=== PATIENT | male | born 1945 | race African-American/Black ===

== ENCOUNTER → 2017-03-02 | Day surgery (SDC) | payer OTHER ==
--- NOTE | 2017-02-27 17:08 | Pre-op HX & Phy Repo 2 SIG ---
DATE OF ADMISSION: 03/02/2017 DATE OF SURGERY: 03/02/2017. PREOPERATIVE DIAGNOSIS: Total retinal detachment, left eye. BRIEF NOTE: This is the first [place] admission for the patient, who is a very nice 72-year-old gentleman, who complained of decreased vision in the left eye and was found to have a total retinal detachment. He underwent cataract surgery roughly one month ago and noticed no real improvement in his vision. PAST OCULAR HISTORY: Negative for prior surgery other than the cataract. PAST MEDICAL HISTORY: Remarkable for previous throat condition. ALLERGIES: He has no known allergies. PHYSICAL EXAMINATION: Best vision at the time of admission was 20/25 in the right eye and hand motions in the left. Pressures were 12 and 2. The anterior segment on the right showed simply sluggish reaction and the left showed mild hyperemia. There was an anterior chamber lens in reasonable position. Mild flare was seen in the anterior chamber. Fundus exam of the right eye appeared benign. The left eye showed a total retinal detachment that was freely mobile. A horseshoe tear was seen at the 2 o'clock position. A possible second tear was suspected, but was not clearly seen because of a fold. The detachment was confirmed on ultrasound. General physical examination will be included with this dictation and performed by , the patient's general physician. ASSESSMENT: 1. Total retinal detachment, left eye. 2. Pseudophakia. PLAN: The plan is to perform a pars plana vitrectomy with possible scleral buckle, endolaser, gas fluid exchange, or possible silicone oil on the left eye. The risks and benefits of surgery were gone over the patient with potential for infection, hemorrhage, glaucoma, and remote possibility of loss of the eye. The risk of anesthesia was discussed. The patient understands and consents to the surgery, which will be performed on Thursday. Isra Gómez M.D. DR: DENNYS JOB#: [id number] CC:
[2017-03-02] VITALS (8 sets, daily range): BP systolic 109–132; BP diastolic 58–80
[~2017-03-02] VITALS: Ht 177.8 cm; Wt 75.7 kg
[~2017-03-02] MED LIST: BSS 15ml BTL ONE; BSS 500ml btl ONE; Bupivacaine 0.75% 30ml vial INJ ONE; Cyclopentolate 1% Opth Sol ONE; Dexamethasone 4mg/ml vial ONE; EPINEPHrine 1mg/1ml Amp ONE; Flurbiprofen 0.03% Opth Sol 2.5ml ONE; Gatifloxacin Opth Solution 0.5% ONE; Hydromorphone 0.5mg/0.5ml inj IVP PRN; Kenalog-10 5ml Inj ONE; Kenalog-40 1ml Vial ONE; Ketorolac 30mg Inj IV PRN; LORATADINE10 M2 PO; Lidocaine 2% MPF 5ml Vial INJ ONE; Maxitrol Opth Oint 3.5gm ONE; NS Irrig 1000ml ONE; Neosporin Oph Soln 5ml Btl ONE; Norco 5mg/325mg tab ORAL PRN; Phenylephrine 2.5% Op Soln ONE; Povidone-Iodine 5% opth solution ONE; Pred Forte 1% Opth Susp 1ml LEFT EYE SCH; Sodium Hyaluronate 10 mg/ml 0.85ml ONE; Sterile Water Irrig 1000ml IRRIG ONE; Tetracaine 0.5% Opth Soln ONE; fentaNYL 100 mcg/2 mL IV PRN
--- NOTE | 2017-03-02 06:27 | Pre-Procedure Note/Attestation ---
Pre-Procedure Note/Attestation Complete Prior to Procedure Planned Procedure: left Procedure Narrative: PPV, possible scleral buckle, endolaser, possible gas-fluid exchange, possible silicone oil injection L eye Indications for Procedure Pre-Operative Diagnosis: Total retinal detachment L eye Attestation I attest that I discussed the nature of the procedure; its benefits; risks and complications; and alternatives (and the risks and benefits of such alternatives ), prior to the procedure, with the patient (or the patient's legal sales representative girls' apparel). I attest that, if there was a reasonable possibility of needing a blood transfusion, the patient (or the patient's legal sales representative girls' apparel) was given the [place] Department of Health Services standardized written summary, pursuant to the Aiden Tara Blood Safety Act ([place] Health and Safety Code # 1645, as amended). I attest that I re-evaluated the patient just prior to the surgery and that there has been no change in the patient's H&P, except as documented below: ELIZABETH MURPHY Mar 02, 2017 06:27
[2017-03-02] MEDS: Flurbiprofen 0.03% Opth Sol 2.5ml LEFT EYE SCH ×3 (07:49→08:04)
[2017-03-02] MEDS: Phenylephrine 2.5% Op Soln LEFT EYE SCH ×3 (07:49→08:04)
[2017-03-02] MEDS: Gatifloxacin Opth Solution 0.5% LEFT EYE SCH ×3 (07:50→08:04)
[2017-03-02] MEDS: Cyclopentolate 1% Opth Sol LEFT EYE SCH ×3 (07:50→08:04)
[2017-03-02 08:09] LABS: BASOPHILS % (AUTO) 1.3 % (0.0-2.0); EOSINOPHILS % (AUTO) 0.5 % (0.0-3.0); LYMPHOCYTES % (AUTO) 25.4 % (20.0-45.0); MEAN CORPUSCULAR HEMOGLOBIN 28.4 PG (27.0-31.0); MEAN CORPUSCULAR HGB CONC 30.8 G/DL (32.0-36.0); MEAN CORPUSCULAR VOLUME 92 FL (80-99); MEAN PLATELET VOLUME 8.2 FL (6.5-10.1); MONOCYTES % (AUTO) 7.4 % (1.0-10.0); NEUTROPHILS % (AUTO) 65.4 % (45.0-75.0); PLATELET COUNT 237 K/UL (150-450); RED BLOOD COUNT 5.33 M/UL (4.70-6.10); RED CELL DISTRIBUTION WIDTH 12.9 % (11.6-14.8); WHITE BLOOD COUNT 8.4 K/UL (4.8-10.8)
[2017-03-02 08:39] LABS: ANION GAP 15 (5-15); CALCIUM 9.1 mg/dL (8.6-10.2); CARBON DIOXIDE 26 mEQ/L (20-30); CHLORIDE 100 mEQ/L (98-107); GLOMERULAR FILTRATION RATE > 60 mL/min (>60); HEMOLYSIS 181; POTASSIUM 5.6 mEQ/L (3.4-4.9); SODIUM 141 mEQ/L (135-145)
--- NOTE | 2017-03-02 12:01 | Anethesia Preoperative Eval ---
Anesthesia Pre-op PMH/ROS General Date of Evaluation: Mar 02, 2017 Time of Evaluation: 10:20 Anesthesiologist: Jaskaran ASA Score: ASA 2 Mallampati Score Class I : Soft palate, uvula, fauces, pillars visible Class II: Soft palate, uvula, fauces visible Class III: Soft palate, base of uvula visible Class IV: Only hard plate visible Mallampati Classification: Class II Surgeon: Dalia Diagnosis: Retinal Detatchment Surgical Procedure: Vitrectomy Anesthesia History: none Family History: no anesthesia problems Allergies: Coded Allergies: No Known Allergies (Unverified , 02/27/17) Medications: see eMAR Past Medical History Cardiovascular: Denies: CAD, HTN, [place], arrhythmia, other, valve dz Pulmonary: Denies: COPD, NERI, asthma, other Gastrointestinal/Genitourinary: Denies: CRI, ESRD, GERD, other Neurologic/Psychiatric: Denies: CVA, TIA, dementia, depression/anxiety, other Endocrine: Denies: DM, hypothyroidism, other, steroids HEENT: Denies: [place] (L), SHO[place]WATER (R), cataract (L), cataract (R), glaucoma, other Hematology/Immune: Denies: DVT, anemia, bleeding disorder, other Musculoskeletal/Integumentary: Reports: DJD Anesthesia Pre-op Phys. Exam Physician Exam Last Vital Signs Date Time Temp Pulse Resp B/P Pulse Ox O2 Delivery O2 Flow Rate FiO2 03/02/17 07:56 97.8 72 18 123/73 100 Room Air Constitutional: NAD Neurologic: CN 2-12 intact Cardiovascular: RRR Respiratory: CTA Gastrointestinal: S/NT/ND Airway Exam Mallampati Score: Class II Anesthesia Pre-op A/P Labs Hematology Test 03/02/17 07:40 White Blood Count 8.4 K/UL (4.8-10.8) Red Blood Count 5.33 M/UL (4.70-6.10) Hemoglobin 15.2 G/DL (14.2-18.0) Hematocrit 49.2 % (42.0-52.0) Mean Corpuscular Volume 92 FL (80-99) Mean Corpuscular Hemoglobin 28.4 PG (27.0-31.0) Mean Corpuscular Hemoglobin Concent 30.8 G/DL (32.0-36.0) L Red Cell Distribution Width 12.9 % (11.6-14.8) Platelet Count 237 K/UL (150-450) Mean Platelet Volume 8.2 FL (6.5-10.1) Neutrophils (%) (Auto) 65.4 % (45.0-75.0) Lymphocytes (%) (Auto) 25.4 % (20.0-45.0) Monocytes (%) (Auto) 7.4 % (1.0-10.0) Eosinophils (%) (Auto) 0.5 % (0.0-3.0) Basophils (%) (Auto) 1.3 % (0.0-2.0) Chemistry Test 03/02/17 07:40 Sodium Level 141 mEQ/L (135-145) Potassium Level 5.6 mEQ/L (3.4-4.9) H Chloride Level 100 mEQ/L (98-107) Carbon Dioxide Level 26 mEQ/L (20-30) Anion Gap 15 (5-15) Blood Urea Nitrogen 15 mg/dL (7-23) Creatinine 1.0 mg/dL (0.7-1.2) Estimat Glomerular Filtration Rate > 60 mL/min (>60) Glucose Level 99 mg/dL (74-106) Calcium Level 9.1 mg/dL (8.6-10.2) EDOUARD MURGUIA M.D. Mar 02, 2017 12:01
--- NOTE | 2017-03-02 13:15 | Immediate Post-Op Evaluation ---
Immediate Post-Op Evalulation Immediate Post-Op Evalulation Procedure: Vitrectomy Date of Evaluation: Mar 02, 2017 Time of Evaluation: 13:14 IV Fluids: 400 Blood Products: 0 Estimated Blood Loss: 0 Urinary Output: 0 Blood Pressure Systolic: 130 Blood Pressure Diastolic: 80 Pulse Rate: 80 Respiratory Rate: 20 O2 Sat by Pulse Oximetry: 99 Temperature (Fahrenheit): 98 Pain Score (1-10): 2 Nausea: No Vomiting: No Complications none Patient Status: awake Hydration Status: adequate Given Within 1 Hr of Incision: EDOUARD Bazan M.D. Mar 02, 2017 13:15
--- NOTE | 2017-03-02 13:16 | 48 Hour Post Anesthesia Eval ---
Post Anesthesia Evaluation Procedure: Vitrectomy Date of Evaluation: Mar 02, 2017 Time of Evaluation: 14:00 Blood Pressure Systolic: 130 0: 80 Pulse Rate: 80 Respiratory Rate: 20 Temperature (Fahrenheit): 98 O2 Sat by Pulse Oximetry: 99 Airway: patent Nausea: No Vomiting: No Pain Intensity: 2 Hydration Status: adequate Cardiopulmonary Status: stable Mental Status/LOC: patient returned to baseline Follow-up Care/Observations: na Post-Anesthesia Complications: na Follow-up care needed: N/A EDOUARD MURGUIA M.D. Mar 02, 2017 13:16
--- NOTE | 2017-03-03 22:07 | Operative Note - Dictated ---
DATE OF OPERATION: 03/04/2017 PREOPERATIVE DIAGNOSIS: Total retinal detachment, left eye. POSTOPERATIVE DIAGNOSES: Total retinal detachment, left eye with mild choroidal effusions. PROCEDURES PERFORMED: 1. Pars plana vitrectomy. 2. Scleral buckle. 3. Drainage of choroidal fluid. 4. Endolaser. 5. Formation of peripheral iridotomy. 6. Injection and removal of perfluorocarbon liquid. 7. Silicone oil injection left eye. SURGEON: Isra Gómez M.D. DOUGH CATCHER: None. ANESTHESIA: LMA general. ANESTHESIOLOGIST: Jeremias Jessica M.D. JUSTIFICATION FOR SURGERY: This 72-year-old gentleman noted loss of vision in the right eye roughly a month ago. He underwent cataract surgery soon after that and subsequently was told he had a retinal detachment. BRIEF NOTE: The patient was brought to the operating room, placed on operating room table in supine position. After a time-out was performed and agreed upon by the staff, LMA general anesthesia was induced by Dr. Jessica. Retrobulbar and Van Lint blocks were then given in the standard way to limit the need for intraoperative and postoperative anesthetic. The patient was then prepped and draped in the normal manner. The lid speculum was inserted into the left eye. A 360-degree peritomy was then cut with relaxation incisions at 3 and 9 o'clock in preparation for a subsequent scleral buckle. The muscles were isolated on white and black ties. The eye was examined with indirect ophthalmoscope and the total bullous retinal detachment was seen with migration of the retina to the lens implant and pupillary plane. There were also suspicion of choroidal effusions. Using a 23-gauge trocar system cannulas were placed in all except the infranasal quadrant. Infusion was secured inferotemporally after it was certain that the infusion penetrated the pars plana and entered the anterior segment of the eye. An initial limited vitrectomy was performed but it was noted that there was difficulty in manipulating the retina further posteriorly. For this reason, perfluorocarbon liquid injected into the eye. This helped somewhat but there was still a fairly significant dislocation of the retina anteriorly. A small sclerotomy was made 4 mm in the limbus at about the 11 o'clock position and a large amount of serous fluid was removed. This allowed the retina and choroid to fall back and allowed the infusion to go definitely into the vitreous cavity. Small amount of bleeding was noted and this seized without difficulty. Additional Perfluoron was injected and this allowed the retina to be flattened fairly nicely. At this juncture, the instruments were removed and it was elected to place an encircling scleral buckle. A 240 band was chosen and mattress sutures of 5-0 nylon were placed in each quadrant roughly 3 mm apart, 11 mm from the limbus. A 240 band was placed around the eye and secured with a 7-0 sleeve in the superonasal quadrant. This was tightened to form moderate buckling effect. The eye was re-entered and an air-fluid exchange performed removing Perfluoron . Small amount of migration of posterior fluid was noted but for the most part the retina could be seen flat on the buckle. Endolaser was brought into the eye and a power of 0.3 joy, duration 0.2 seconds, a total of 1647 lesions were applied essentially creating a new pars plana on the crest of the buckle. A small retinal break that had been noted previously at the 2 o'clock position was surrounded by laser in addition two other suspicious areas one at 3 and the other at 8 were also treated. No posterior retinotomy was made and the retina was noted to remain flat. Because of the multiplicity of lesions and the tendency for the retina to migrate it was elected to place silicone oil. The vitreous cutter was used to perform a peripheral iridotomy at 6 o'clock and another smaller one at 3. A 1000 centistokes silicone oil was then chosen and a 85% fill was made leaving an air bubble in the anterior chamber and the eye with normal pressure. At this juncture, the cannulas were removed and the individual sclerotomy closed with 8-0 Vicryl suture. A single 10-0 nylon suture was used to close and opening in the superior cataract wound that had been made with a MVR blade in order to allow pressure to normalize, a knot at this site was buried. Bridle sutures were removed from the muscles and conjunctiva and tenons capsule were pulled up and secured with 6-0 plain catgut. Subconjunctival Decadron and gentamicin were injected and Maxitrol and atropine ointments were instilled. The eye was patched and shielded and the patient taken to recovery in excellent condition after smooth extubation for removal of the LMA. There were no complications but it should be noted that because of the difficulty of repositioning the retina posteriorly a sclerotomy with serous fluid drainage was made and also election was made to go with silicone oil as opposed the gas for tamponade. Isra Gómez M.D. DR: Martha JOB#: [id number] CC: Isra Gómez M.D.; Fax#: [phone]
--- NOTE | 2017-03-04 06:32 | Brief Operative Note ---
Immediate Post Operative Note Operative Note Chief Complaint: Dark vision L eye Pre-op Diagnosis: Total retinal detachment L eye Procedure: PPV, Drainage of choroidal fluid, peflurocarbon injection and removal, inferior iridotomy formation, scleral buckle (240 band), endolaser, silicone oil injection (1000 cs) Left eye Post-op Diagnosis: Total retinal detachment with serous choroidal effusions L eye Findings: consistent w/pre-op dx studies Surgeon: Dalia Anesthesiologist: Jaskarna Anesthesia: general Specimen: none Complications: none Condition: stable Estimated Blood Loss: none Drains: none Implant(s) used?: Yes - Silicone oil injection ELIZABETH MURPHY Mar 04, 2017 06:32
--- NOTE | 2017-03-04 11:38 | Pre-op HX & Phy Repo 2 SIG ---
DATE OF ADMISSION: 03/02/2017 PRESURGICAL INTERNAL MEDICINE HISTORY AND PHYSICAL REASON FOR EVALUATION: I was asked by Dr. Isra Gómez to see this 72-year-old male, who going for elective surgery on the left eye. The patient has total retinal detachment, left eye. Please see History and Physical by Dr. Isra Gómez. The patient was evaluated. Chart was reviewed. PAST MEDICAL HISTORY/REVIEW OF SYSTEMS: Remarkable for denies history of heart attack. No hypertension. Denies history of stroke or diabetes. No history of GI problem, heartburn or ulcer disease. No history of anemia. No respiratory problem. No renal deficiency. Denies history of hepatitis. No thyroid problem. PAST SURGICAL HISTORY: Inguinal hernia at age 18, left elbow and left knee surgery. MEDICATIONS: Present medications loratadine, vitamins Tylenol p.r.n., and [place] p.r.n. for pain. ALLERGIES: Not known. HABITS: Denies tobacco. Alcohol socially. No street drugs. FAMILY HISTORY: Mother from lung cancer and metastasis to the brain and father from cancer. PHYSICAL EXAMINATION: GENERAL: This is a alert, well-developed, well-nourished male in his 70s, no acute distress. VITAL SIGNS: Blood pressure 123/73, temperature 97.8 degrees, pulse 72, O2 saturation 100%. The patient's BMI is 24 kg/m2. SKIN: Scar on left knee and left elbow, clear and warm. No rashes. LYMPHATICS: Lymph nodes are not enlarged. HEENT: Head, normocephalic. Ears, clear. Eyes, full description per Dr. Isra Gómez. Mouth, clear and moist. No dentures. NECK: No jugular venous distention. Trachea midline. Thyroid . No palpable mass. LUNGS: Clear auscultation and percussion. No rales or rhonchi. HEART: Heart sounds are regular. No murmur. No ectopy. ABDOMEN: Soft. No palpable mass. No rebound. EXTREMITIES: No edema. No deformity. No calf tenderness. GENITOURINARY TRACT: CVA nontender. No dysuria. NEUROLOGIC: No tremor. No asymmetry. LABORATORY AND DIAGNOSTIC DATA: Electrocardiogram, normal sinus rhythm at 70 per minute, normal ECG. The patient did not eat or drink from 7 p.m. yesterday. Potassium 5.6, creatinine 1.0, and GFR 16. White blood cells 8.4, hemoglobin 15.5, and hematocrit 49.2. BUN 15, sodium 141, blood sugar 99, and calcium 9.1. IMPRESSION: 1. Total retinal detachment, left eye. 2. Hyperkalemia of 5.6 milligram. 3. Chronic kidney disease stage 1. PLAN: Pars plana vitrectomy, 23 G buckle left eye per Dr. Isra Gómez. CONCLUSION: The patient's vital signs stable. EKG is normal. The patient's laboratory work showed potassium elevation of 5.6, and creatinine 1.0. The patient has a stage 1 chronic kidney disease and further evaluation and follow up with primary care physician. The patient did not eat or drink from 7 p.m. yesterday and his condition optimized for surgery. [id number] evaluation approximately 60 minutes. Thank you very much, Dr. Gómez, for privilege to participate presurgical care of this interesting patient. Magdalena Rivas M.D. DR: Rajni JOB#: [id number] CC:
--- NOTE | 2017-03-04 15:53 | Cardiology Report ---
APPROVED REPORT EKG Measurement Heart [id number] Normal sinus rhythm Normal ECG
== END | disposition home or self-care (01) ==
LOC: SUR 06:15
DX: H33.052 Total retinal detachment, left eye (principal); E87.5 Hyperkalemia; N18.1 Chronic kidney disease, stage 1; M19.90 Unspecified osteoarthritis, unspecified site; Z96.1 Presence of intraocular lens
CPT/HCPCS: 36415; 67108; 80048; 85025; 93005; C1814; J0171; J1100; J2405; J3301; J3470; J3490; 94003; 94150

== ENCOUNTER 2017-04-22 05:16 | Day surgery (SDC) | payer OTHER ==
--- NOTE | 2017-04-21 19:15 | Pre-op HX & Phy Repo 2 SIG ---
DATE OF ADMISSION: 04/22/2017 PREOPERATIVE DIAGNOSIS: Status post retinal detachment repair with silicone oil, left eye. BRIEF NOTE: This is the second [place] admission for this patient who is a 72-year-old gentleman with a history of retinal detachment in the left eye admitted for silicone oil removal. His past ocular history is remarkable for cataract extraction done in late January followed by loss of vision. He was found to have a retinal detachment, which was repaired in February of this year using a scleral buckle, drainage, and silicone oil injection. Since that time, the retina has appeared to have flattened nicely, but a small oil air bubble was migrated into the anterior chamber. Because of this, he is admitted for removal of the silicone oil or possible removal and replacement if it is felt that detachment repair is not stable. PAST MEDICAL HISTORY: History is remarkable for previous throat issues. He is on Prolensa ophthalmic solution and in addition uses Cialis as needed. ALLERGIES: He has no known allergies. PHYSICAL EXAMINATION: Best vision at the time of the visit was counting fingers at six feet in the right eye with pressure of 17. The anterior segment showed an anterior chamber lens in good position with a small silicone oil bubble in the superior anterior chamber. Funduscopic pressure was 17 on the left. Funduscopic examination revealed a complete scleral buckle. There was roughly a 90% silicone oil fill with the retina appearing attached. ASSESSMENT: Status post retinal detachment repair with silicone oil, left eye. PLAN: The plan is to perform a pars plana vitrectomy with silicone oil removal and examination of the retina with additional surgeries needed. The risks and benefits of surgery gone over with the patient with potential for infection, recurrent detachment, hemorrhage, and the possibility of loss of the eye. The risk of anesthesia was discussed. The patient understands and consents to surgery, which will be performed on tomorrow morning. Isra Gómez M.D. DR: JAMIE JOB#: [id number] CC:
[2017-04-22] VITALS (10 sets, daily range): BP systolic 113–125; BP diastolic 45–78
[~2017-04-22] VITALS: Ht 177.8 cm; Wt 75.3 kg
[~2017-04-22 05:16] MED LIST changes: -BSS 15ml BTL ONE; -BSS 500ml btl ONE; -Bupivacaine 0.75% 30ml vial INJ ONE; -Dexamethasone 4mg/ml vial ONE; -EPINEPHrine 1mg/1ml Amp ONE; -Hydromorphone 0.5mg/0.5ml inj IVP PRN; -Kenalog-10 5ml Inj ONE; -Kenalog-40 1ml Vial ONE; -Ketorolac 30mg Inj IV PRN; -Lidocaine 2% MPF 5ml Vial INJ ONE; -Maxitrol Opth Oint 3.5gm ONE; -NS Irrig 1000ml ONE; -Neosporin Oph Soln 5ml Btl ONE; -Norco 5mg/325mg tab ORAL PRN; -Povidone-Iodine 5% opth solution ONE; -Pred Forte 1% Opth Susp 1ml LEFT EYE SCH; -Sodium Hyaluronate 10 mg/ml 0.85ml ONE; -Sterile Water Irrig 1000ml IRRIG ONE; -Tetracaine 0.5% Opth Soln ONE; -fentaNYL 100 mcg/2 mL IV PRN
[2017-04-22] MEDS: Flurbiprofen 0.03% Opth Sol 2.5ml LEFT EYE SCH ×3 (05:44→06:06)
[2017-04-22] MEDS: Phenylephrine 2.5% Op Soln LEFT EYE SCH ×3 (05:44→06:06)
[2017-04-22] MEDS: Cyclopentolate 1% Opth Sol LEFT EYE SCH ×3 (05:44→06:06)
[2017-04-22] MEDS: Gatifloxacin Opth Solution 0.5% LEFT EYE SCH ×3 (05:45→06:06)
[2017-04-22 06:04] LABS: BASOPHILS % (AUTO) 1.1 % (0.0-2.0); EOSINOPHILS % (AUTO) 0.8 % (0.0-3.0); LYMPHOCYTES % (AUTO) 31.6 % (20.0-45.0); MEAN CORPUSCULAR HEMOGLOBIN 28.8 PG (27.0-31.0); MEAN CORPUSCULAR HGB CONC 32.3 G/DL (32.0-36.0); MEAN CORPUSCULAR VOLUME 89 FL (80-99); MEAN PLATELET VOLUME 8.3 FL (6.5-10.1); MONOCYTES % (AUTO) 7.8 % (1.0-10.0); NEUTROPHILS % (AUTO) 58.7 % (45.0-75.0); PLATELET COUNT 251 K/UL (150-450); RED BLOOD COUNT 5.08 M/UL (4.70-6.10); RED CELL DISTRIBUTION WIDTH 12.9 % (11.6-14.8); WHITE BLOOD COUNT 8.7 K/UL (4.8-10.8)
[2017-04-22 06:19] LABS: ANION GAP 13 (5-15); CALCIUM 9.1 mg/dL (8.6-10.2); CARBON DIOXIDE 25 mEQ/L (20-30); CHLORIDE 100 mEQ/L (98-107); GLOMERULAR FILTRATION RATE > 60 mL/min (>60); HEMOLYSIS 62; POTASSIUM 4.1 mEQ/L (3.4-4.9); SODIUM 138 mEQ/L (135-145)
--- NOTE | 2017-04-22 06:23 | Pre-Procedure Note/Attestation ---
Pre-Procedure Note/Attestation Complete Prior to Procedure Planned Procedure: left Procedure Narrative: PPV, removalof silicone oil, endolaser, possible gas-fluid exchange, possible silicone oil replacement L eye Indications for Procedure Pre-Operative Diagnosis: s/p retinal detachment repair with silicone oil L eye Attestation I attest that I discussed the nature of the procedure; its benefits; risks and complications; and alternatives (and the risks and benefits of such alternatives ), prior to the procedure, with the patient (or the patient's legal digital media representative). I attest that, if there was a reasonable possibility of needing a blood transfusion, the patient (or the patient's legal digital media representative) was given the [place] Department of Health Services standardized written summary, pursuant to the Aiden Sumpter Blood Safety Act ([place] Health and Safety Code # 1645, as amended). I attest that I re-evaluated the patient just prior to the surgery and that there has been no change in the patient's H&P, except as documented below: ELIZABETH MURPHY April 22, 2017 06:23
[2017-04-22] MEDS ORDERED: Norco 5mg/325mg tab ORAL PRN (06:30)
--- NOTE | 2017-04-22 06:51 | Anethesia Preoperative Eval ---
Anesthesia Pre-op PMH/ROS General Date of Evaluation: April 22, 2017 Time of Evaluation: 06:41 Anesthesiologist: miguel ASA Score: ASA 2 Mallampati Score Class I : Soft palate, uvula, fauces, pillars visible Class II: Soft palate, uvula, fauces visible Class III: Soft palate, base of uvula visible Class IV: Only hard plate visible Mallampati Classification: Class II Surgeon: carl Diagnosis: s/p retinal detachment Surgical Procedure: pars plana vitrectomy left eye Anesthesia History: none Family History: no anesthesia problems Allergies: Coded Allergies: No Known Allergies (Unverified , 02/27/17) Medications: see eMAR Past Medical History Gastrointestinal/Genitourinary: Reports: other - hiatal hernia HEENT: Reports: cataract (L) PSxH Narrative: hiatal hernia sx, left eye surgery Anesthesia Pre-op Phys. Exam Physician Exam Last Vital Signs Date Time Temp Pulse Resp B/P Pulse Ox O2 Delivery O2 Flow Rate FiO2 04/22/17 06:00 98.3 74 18 125/78 99 Room Air Constitutional: NAD Neurologic: CN 2-12 intact Cardiovascular: RRR Respiratory: CTA Gastrointestinal: S/NT/ND Airway Exam Mallampati Score: Class II MO: full Neck: supple ROM: full Teeth: intact Anesthesia Pre-op A/P Labs Hematology Test 04/22/17 05:50 White Blood Count 8.7 K/UL (4.8-10.8) Red Blood Count 5.08 M/UL (4.70-6.10) Hemoglobin 14.7 G/DL (14.2-18.0) Hematocrit 45.4 % (42.0-52.0) Mean Corpuscular Volume 89 FL (80-99) Mean Corpuscular Hemoglobin 28.8 PG (27.0-31.0) Mean Corpuscular Hemoglobin Concent 32.3 G/DL (32.0-36.0) Red Cell Distribution Width 12.9 % (11.6-14.8) Platelet Count 251 K/UL (150-450) Mean Platelet Volume 8.3 FL (6.5-10.1) Neutrophils (%) (Auto) 58.7 % (45.0-75.0) Lymphocytes (%) (Auto) 31.6 % (20.0-45.0) Monocytes (%) (Auto) 7.8 % (1.0-10.0) Eosinophils (%) (Auto) 0.8 % (0.0-3.0) Basophils (%) (Auto) 1.1 % (0.0-2.0) Chemistry Test 04/22/17 05:50 Sodium Level Pending Potassium Level Pending Chloride Level Pending Carbon Dioxide Level Pending Blood Urea Nitrogen Pending Creatinine Pending Estimat Glomerular Filtration Rate Pending Glucose Level Pending Calcium Level Pending Risk Assessment & Plan Assessment: s/p retinal retachment Plan: pars plana vitrectomy left eye Status Change Before Surgery: No Pre-Antibiotics Drug: ANNE Griffith April 22, 2017 06:51
[2017-04-22] MEDS ORDERED: fentaNYL 100 mcg/2 mL IV ONE (07:00)
[2017-04-22] MEDS ORDERED: Lidocaine 1% MPF 10mg/ml 5ml ONE (07:00)
[2017-04-22] MEDS ORDERED: Sterile Water Irrig 1000ml IRRIG ONE (07:00)
[2017-04-22] MEDS ORDERED: NS Irrig 1000ml ONE (07:00)
[2017-04-22] MEDS ORDERED: Propofol 10mg/ml 20ml IV ONE (07:00)
[2017-04-22] MEDS ORDERED: LR 1000ml ONE (07:00)
[2017-04-22] MEDS ORDERED: Midazolam 2mg/2ml Inj ONE (07:00)
[2017-04-22] MEDS ORDERED: Kenalog-40 1ml Vial ONE (07:06)
[2017-04-22] MEDS ORDERED: BSS 500ml btl ONE (07:06)
[2017-04-22] MEDS ORDERED: Maxitrol Opth Oint 3.5gm ONE (07:07)
[2017-04-22] MEDS ORDERED: Dexamethasone 4mg/ml vial ONE (07:07)
[2017-04-22] MEDS ORDERED: Tetracaine 0.5% Opth Soln ONE (07:07)
[2017-04-22] MEDS ORDERED: Lidocaine 2% MPF 5ml Vial INJ ONE (07:08)
[2017-04-22] MEDS ORDERED: Kenalog-10 5ml Inj ONE (07:08)
[2017-04-22] MEDS ORDERED: BSS 15ml BTL ONE (07:09)
[2017-04-22] MEDS ORDERED: Sodium Hyaluronate 10 mg/ml 0.85ml ONE (07:09)
[2017-04-22] MEDS ORDERED: Bupivacaine 0.75% 30ml vial INJ ONE (07:09)
[2017-04-22] MEDS ORDERED: EPINEPHrine 1mg/1ml Amp ONE (07:10)
--- NOTE | 2017-04-22 07:27 | Immediate Post-Op Evaluation ---
Immediate Post-Op Evalulation Immediate Post-Op Evalulation Procedure: pars plana vitrectomy left eye Date of Evaluation: April 22, 2017 IV Fluids: lr 200ml Blood Products: none Estimated Blood Loss: negligible Urinary Output: na Blood Pressure Systolic: 118 Blood Pressure Diastolic: 74 Pulse Rate: 76 Respiratory Rate: 16 O2 Sat by Pulse Oximetry: 99 Temperature (Fahrenheit): 98.1 Pain Score (1-10): 0 Nausea: No Vomiting: No Complications none Patient Status: awake, reacts, patent Hydration Status: adequate Drug: ANNE Griffith April 22, 2017 07:27
[2017-04-22] MEDS ORDERED: Pred Forte 1% Opth Susp 1ml LEFT EYE ONE (07:30)
[2017-04-22] MEDS ORDERED: LR 1000ml 1,000 ML IVLG SCH (08:23)
[2017-04-22] MEDS ORDERED: fentaNYL 100 mcg/2 mL IV PRN (08:30)
[2017-04-22] MEDS ORDERED: DiphenhydrAMINE 50mg/ml Inj IVP PRN (08:30)
[2017-04-22] MEDS ORDERED: Midazolam 2mg/2ml Inj IVP PRN (08:30)
--- NOTE | 2017-04-22 08:43 | Brief Operative Note ---
Immediate Post Operative Note Operative Note Chief Complaint: Out of focus Pre-op Diagnosis: s/p retinal detachment repair with silicone oil L eye Procedure: PPV, Silicone oil removal, endolaser 964 spots, air-fluid exchange, suture removal L eye Post-op Diagnosis: same as pre-op Surgeon: Dalia Anesthesiologist: Yudelka Anesthesia: MAC Specimen: none Complications: none Condition: stable Estimated Blood Loss: none Drains: none Implant(s) used?: No ELIZABETH MURPHY April 22, 2017 08:43
--- NOTE | 2017-04-22 08:56 | 48 Hour Post Anesthesia Eval ---
Post Anesthesia Evaluation Procedure: pars plana vitrectomy left eye Date of Evaluation: April 22, 2017 Time of Evaluation: 08:55 Blood Pressure Systolic: 120 0: 84 Pulse Rate: 78 Respiratory Rate: 17 Temperature (Fahrenheit): 98.1 O2 Sat by Pulse Oximetry: 99 Airway: patent Nausea: No Vomiting: No Pain Intensity: 0 Hydration Status: adequate Cardiopulmonary Status: stable Mental Status/LOC: patient returned to baseline Post-Anesthesia Complications: none Follow-up care needed: N/A ANNE GEORGE April 22, 2017 08:56
--- NOTE | 2017-04-22 12:15 | Operative Note - Dictated ---
DATE OF OPERATION: 04/22/2017 POSTOPERATIVE DIAGNOSIS: 1. Status post retinal detachment repair with silicone oil, left eye. POSTOPERATIVE DIAGNOSIS: Status post retinal detachment repair with silicone oil, left eye with exposed cataract sutures. PROCEDURES PERFORMED: 1. Pars plana vitrectomy. 2. Removal of silicone oil. 3. Endolaser. 4. Air-fluid exchange. 5. Removal of cataracts sutures, left eye. SURGEON: Isra Gómez M.D. [employer] SUPERVISOR: None. ANESTHESIA: Local sedation. ANESTHESIOLOGIST: Dr. Mirta Everett M.D. JUSTIFICATION FOR SURGERY: This 72-year-old gentleman underwent a complicated retinal detachment repair eight weeks ago and is admitted for removal of silicone oil. BRIEF NOTE: The patient brought to the operative room, placed on operating room table in supine position. After a time-out was performed and agreed upon by the staff and initial monitoring secured by Dr. Everett. Retrobulbar and Van Lint blocks were given in the standard way. When the blocks taken effect, he was prepped and draped in normal manner. A lid speculum was inserted into the left eye. Using a 23-gauge trocar system cannulas were placed all except infranasal quadrant. Infusion secured inferotemporally. Using the silicone oil extraction devise, silicone oil was removed from the posterior pole. A large bubble, which had migrated into the anterior chamber was removed after paracentesis was made at the 10 o'clock position with a 23-gauge MVR blade. The was then suctioned out from the anterior chamber and remaining small bubbles were extracted with a 27-gauge needle. The eye was examined with scleral depression. The retina appeared flat without puckering or scarring. The two retinal holes at 12 and 130 were identified and it was felt that the only partial surrounding laser was noted. Using scleral depression endolaser these areas were treated with a full surround of each break with three rows of laser. Additional laser was placed inferiorly at suspicious areas. The retina remained completely flat. At this juncture, an air-fluid exchange was performed to remove residual silicone small bubbles. Several nylon sutures and the cataract wound was noted to have exposed suture knots. These were removed. The cannulas were removed from the eye and the wounds noted be self-sealing. Subconjunctival Decadron and gentamicin were injected inferiorly and Maxitrol and atropine ointments were instilled. The eye was patched and shielded. The patient was taken to recovery in excellent condition. There were no complications. Isra Gómez M.D. DR: Ricardo JOB#: [id number] CC:
--- NOTE | 2017-04-22 14:15 | Pre-op HX & Phy Repo 2 SIG ---
DATE OF ADMISSION: 04/22/2017 PRESURGICAL INTERNAL MEDICINE HISTORY AND PHYSICAL REASON FOR EVALUATION: I was asked by Dr. Isra Gómez to see this 72-year-old male, who is going for elective surgery on the left eye. The patient has retinal detachment, left eye. The patient was evaluated. Chart was reviewed. Please see the History and Physical by Dr. Isra Gómez. The patient's this second visit to [facility]. He had a surgery on the left eye on 03/02/2017. Please see old chart. PAST MEDICAL HISTORY AND REVIEW OF SYSTEMS: Denies history of chest pain, palpitation, and heart attack. No history of hypertension. No diabetes. No history of stroke or seizures. Denies history of lung problem, asthma, or bronchitis. No history of anemia or thyroid problem. No history of GI bleeding. The patient has history of belching and hiccups with GERD. PAST SURGICAL HISTORY: Remarkable for inguinal hernia repair at the age of 18, history of left elbow trauma injury, and history of left eye surgery. ALLERGIES: Not known. FAMILY HISTORY: Father from complication of lung cancer. Mother had diabetes mellitus and cancer. PRESENT MEDICATIONS: vitamins and Tylenol p.r.n. for pain. HABITS: Denies tobacco use. Alcohol socially. No street drugs. PHYSICAL EXAMINATION: GENERAL: Alert, well-developed, well-nourished, 72-year-old male in no acute distress. VITAL SIGNS: Blood pressure 125/71, temperature 98.3 degrees, pulse 74, and O2 saturation 99% on room air. SKIN: Warm and clear. No rashes. LYMPHATICS: Lymph nodes not enlarged. HEENT: Eyes, full description per Dr. Isra Gómez. No conjunctivitis. Nose, clear. No discharge. Mouth, clear and moist. No dentures. NECK: Supple. No jugular vein distention. Carotids artery +2. Trachea midline. CHEST: No deformity or asymmetry. LUNGS: Clear to auscultation and percussion. No rales or rhonchi. HEART: Sinus rhythm. No ectopy. No murmur. No S3 or S4. ABDOMEN: Soft and benign. Liver and spleen not enlarged. No rebound. EXTREMITIES: No deformity. No asymmetry. No calf tenderness or varicose veins. NERVOUS SYSTEM: No asymmetry. No tremor. No nystagmus. LABORATORY AND DIAGNOSTIC DATA: Electrocardiogram done on 03/02/2017 showed normal sinus rhythm at 70 per minute, normal ECG. The patient did not eat or drink from yesterday 8 p.m. Laboratory done today showed a CBC normal limits. Chemistry pending. Chemistry for 03/02/2017 showed elevated potassium to 5.6. IMPRESSION: 1. Retinal detachment, left eye. 2. Gastroesophageal reflux disease. 3. History of hyperkalemia. PLAN: Pars plana vitrectomy 23 G scleral buckle injection, left eye by Dr. Isra Gómez. CONCLUSION: The patient has gastroesophageal reflux disease and history of hyperkalemia. We will check potassium today and explain the elevation. The patient has renal failure kidney, potassium as well. The patient's vital signs are stable. ECG is normal. The patient's condition is optimized for surgery. Thank you very much, Dr. Gómez, for privilege to participate in the presurgical care of this interesting patient. Magdalena Rivas M.D. DR: Rajni JOB#: [id number] CC:
== END 2017-04-22 10:15 | disposition home or self-care (01) ==
LOC: SUR 05:16
DX: H33.22 Serous retinal detachment, left eye (principal); K21.9 Gastro-esophageal reflux disease without esophagitis; K44.9 Diaphragmatic hernia without obstruction or gangrene
CPT/HCPCS: 15851; 36415; 67121; 80048; 85025; J0171; J1100; J2250; J2704; J3010; J3301; J3470; J3490; J7120; 94003; 94150